=== PATIENT | male | born 1970 ===

== ENCOUNTER 2018-09-05 12:03 | Emergency (ER) | payer OTHER ==
--- NOTE | 2018-09-05 12:08 | ED Physician Documentation ---
Upper Extremity Injury - HISTORIAN Historian: patient - HPI Stated Complaint: left wrist pain Chief Complaint: Upper Extremity Injury Additional Information: Patient presents to ED with complaints of left wrist pain after sliding into home plate while playing baseball in the [facility] yard today. Onset: just prior to arrival Where: other ([facility]) Severity: moderate Duration: persistent since Context: other Associated Symptoms: denies: tingling Modifying Factors: pain on movement - ROS CONST: no problems CVS/RESP: chest pain, shortness of breath NEURO: headache MS/SKIN/LYMPH: none - PAST HX Past History: Rt handed Allergies/Adverse Reactions: Allergies Allergy/AdvReac Type Severity Reaction Status Date / Time codeine Allergy Verified 09/05/18 12:08 Home Medications: Ambulatory Orders Medication Instructions Recorded Dutasteride [Avodart] 1 cap PO DAILY 09/05/18 Fluticasone/Salmeterol 1 puff INH BID 09/05/18 [Fluticasone-Salmeterol 113-14] Tamsulosin HCl 1 cap PO DAILY 09/05/18 - SOCIAL HX Smoking History: non-smoker Alcohol Use: none Drug Use: none - FAMILY HX Family History: none - VITAL SIGNS Vital Signs: Vital Signs Temp Pulse Resp BP Pulse Ox 98.1 F 77 20 148/72 97 09/05/18 12:04 09/05/18 12:04 09/05/18 12:04 09/05/18 12:04 09/05/18 12:04 - REVIEWED ASSESSMENTS Nursing Assessment Reviewed: Yes Vitals Reviewed: Yes ED Results Lab/Radiology - Radiology Radiology Impressions: Report Submission Date: Sep 05, 2018 12:46:18 PM CDT Patient Study Name: MYCHAL PRIETO Date: Sep 05, 2018 12:24:43 PM CDT Modality Type: DX Gender: M Description: WRIST 3 VIEWS : 66 Institution: [facility] Physician: LINDSAY COLLINS HISTORY: 47-year-old male with left wrist pain after injury while playing baseball. COMPARISON: None available. TECHNIQUE: 3 views of the left wrist were performed. IMPRESSION: 1. Mildly comminuted fracture of the left distal radial metaphysis with mild displacement and dorsal angulation. 2. No other acute fractures are identified about the left wrist. 3. Question of old healed fracture of the base of the first metacarpal bone. Electronically signed on Sep 05, 2018 12:46:18 PM CDT by: Suleiman Rios - Orders Orders: ED Orders Category Date Time Status Double Sugar Tong Splint 1T Care 09/05/18 12:48 Active WRIST 3 VIEWS OR MORE [RAD] Stat Exams 09/05/18 Completed HYDROcodone /APAP 10/325 [[place] 10/325] Med 09/05/18 12:52 Discontinued 1 each PO NOW ONE Upper Extremity Injury Physic - Physical Exam General Appearance: no acute distress, alert Hand: normal inspection, no evidence of injury Wrist: bone tenderness, limited ROM, pain, soft tissue tenderness. No: deformity Elbow/Forearm: normal inspection, no evidence of injury Shoulder: normal inspection, no evidence of injury Neuro/Vascular/Tendon: no vascular compromise, motor nml, sensation nml Skin: warm,dry Head/ENT: nml inspection Neck/Back: nml inspection Resp/CVS: chest non-tender, breath sounds nml, heart sounds nml Abdomen: non-tender Discharge Clincal Impression: Fracture of left distal radius Qualifiers: Encounter type: initial encounter Fracture type: closed Fracture morphology: unspecified fracture morphology Qualified Code(s): S52.502A - Unspecified fracture of the lower end of left radius, initial encounter for closed fracture Referrals: Primary Doctor,No [Primary Care Provider] - 2 Days Additional Instructions: 1. Call to make an appointment [facility] [address] [place] [phone] Take your xray with you. Make an appointment anurag 2. Take [place] as needed for pain. You may add ibuprofen to this medication but do NOT add tylenol 3. Follow up with PCP within 1 week 4. Return to ER for new or worsening symptoms Condition: Stable Disposition: 01 HOME, SELF-CARE Decision to Admit: NO Date of Decison to Admit: 09/05/18 Decision Time: 13:08
[2018-09-05] MEDS ORDERED: HYDROcodone /APAP 10/325 1 EACH TABLET PO ONE (12:52)
--- NOTE | 2018-09-05 12:55 | Diagnostic Imaging Report ---
LINDSAY COLLINS [facility] [address] [facility].[address] [address] Report Submission Date: Sep 05, 2018 12:46:18 PM CDT Patient Study Name: MYCHAL PRIETO Date: Sep 05, 2018 12:24:43 PM CDT Modality Type: DX Gender: M Description: WRIST 3 VIEWS : 66 Institution: [facility] Physician: LINDSAY COLLINS HISTORY: 47-year-old male with left wrist pain after injury while playing baseball. COMPARISON: None available. TECHNIQUE: 3 views of the left wrist were performed. IMPRESSION: 1. Mildly comminuted fracture of the left distal radial metaphysis with mild displacement and dorsal angulation. 2. No other acute fractures are identified about the left wrist. 3. Question of old healed fracture of the base of the first metacarpal bone. Electronically signed on Sep 05, 2018 12:46:18 PM CDT by: Suleiman PANG
[2018-09-05 13:46] VITALS: BP 143/73
== END 2018-09-05 13:45 | disposition home or self-care (01) ==
LOC: ED 12:03
DX: S42.402A Unspecified fracture of lower end of left humerus, initial encounter for closed fracture (principal); W21.09XA Struck by other hit or thrown ball, initial encounter; Y93.67 Activity, basketball; Y99.8 Other external cause status
CPT/HCPCS: 73110